=== PATIENT | male | born 1990 | race Caucasian/White ===

== ENCOUNTER 2016-09-17 17:50 | Emergency (ER) | payer BC, OTHER ==
[~2016-09-17] VITALS: Ht 175.3 cm; Wt 72.6 kg
[2016-09-17 18:18] LABS: HEMATOCRIT 43.3 % (42.0-52.0); HEMOGLOBIN 14.9 gm/dL (14.0-18.0); MCH 30.7 pg (26.0-34.0); MCHC 34.5 g/dL (28.0-37.0); MCV 89.1 fL (80.0-100.0); RBC 4.86 mil/uL (4.50-6.00); WBC 8.6 thou/uL (4.0-11.0)
[2016-09-17 18:25] LABS: ANION GAP 15 mmol/L (7-16); BUN 14 mg/dL (7-18); CALCIUM 9.1 mg/dL (8.5-10.1); CHLORIDE 104 mmol/L (98-107); CO2 22 mmol/L (21-32); CREATININE 1.4 mg/dL (0.7-1.3); GLUCOSE 215 mg/dL (74-106); POTASSIUM 3.5 mmol/L (3.5-5.1); SODIUM 141 mmol/L (136-145)
[2016-09-17 18:29] LABS: ALBUMIN 4.2 g/dL (3.4-5.0); ALKALINE PHOSPHATASE 53 U/L (46-116); SALICYLATE < 2.8 mg/dL (2.8-20.0); SGOT 26 U/L (15-37); SGPT 33 U/L (30-65); TOTAL PROTEIN 7.4 g/dL (6.4-8.2)
[2016-09-17 18:30] LABS: ACETAMINOPHEN < 2 ug/mL (10-30)
[2016-09-18 06:20] LABS: URINE BILIRUBIN NEGATIVE (Negative); URINE BLOOD NEGATIVE (Negative); URINE COLOR YELLOW; URINE GLUCOSE-RANDOM* TRACE (Negative); URINE KETONES NEGATIVE (Negative); URINE NITRITE NEGATIVE (Negative); URINE PROTEIN (DIPSTICK) NEGATIVE (Negative)
[2016-09-18 06:39] LABS: AMP/METHAMP Negative (Negative); BARBITURATES Negative (Negative); BENZODIAZEPINES Negative (Negative); COCAINE Negative (Negative); METHADONE Negative (Negative); OPIATES Negative (Negative); PCP Negative (Negative); THC Negative (Negative)
[2016-09-18 19:18] VITALS: BP 132/72
== END 2016-09-18 19:19 ==
LOC: ER 17:50 → EDBD 17:50 → ER 09-18 19:19
PROVIDERS: Physician Assistant
DX: F23 Brief psychotic disorder (principal)